=== PATIENT | male | born 1970 | race Caucasian/White ===

== ENCOUNTER → 2024-12-03 | Outpatient (CLI) | payer BC ==
[2024-12-04 01:11] LABS: Prostate Specific Antigen 5.43 ng/mL (0.000-3.500)
[2024-12-04 01:52] LABS: ALT 35 U/L (10-49); AST 27 U/L (14-35); Albumin 4.4 g/dL (3.8-4.9); Albumin/Globulin Ratio 1.76 Ratio (1.60-3.17); Alkaline Phosphatase 70 U/L (41-126); Anion Gap 12.30 mmol/L (4.00-12.00); BUN/Creat Ratio 19.25 Ratio (12.00-20.00); Blood Urea Nitrogen 15.4 mg/dL (9.0-27.0); Calcium 9.3 mg/dL (8.7-10.3); Carbon Dioxide 20.7 mmol/L (21.6-31.8); Chloride 106 mmol/L (96-109); Cholesterol 159.00 mg/dL (0.00-200.00); Globulin 2.5 g/dL (1.6-3.3); Glucose 78 mg/dL (70-110); HDL Cholesterol 44.80 mg/dL (40.00-60.00); LDL Cholesterol,Calculated 95.5 mg/dL (0.0-131.0); Potassium 4.0 mmol/L (3.5-5.5); Sodium 139 mmol/L (135-145); Total Protein 6.9 g/dL (6.2-8.2); Triglycerides 93.40 mg/dL (0.00-149.00); VLDL Calculation 18.68 mg/dL (5.00-40.00)
[2024-12-04 09:12] LABS: HCT 45.9 % (39.6-50.0); HGB 15.8 g/dL (13.0-17.0); MCH 30.6 pg (27.0-32.0); MCHC 34.4 g/dL (32.0-37.0); MCV 89.0 FL (80.0-97.0); NRBC Per 100 WBC 0.02 X 10*3/uL (0.00-0.01); Platelet Count 239 X 10*3/uL (140-440); RBC 5.16 X 10*6/uL (4.40-5.60); RDW 12.1 % (11.5-14.5); WBC 8.79 X 10*3/uL (4.50-10.00)
== END | disposition home or self-care (01) ==
LOC: LABMAIN 13:22
DX: Z12.5 Encounter for screening for malignant neoplasm of prostate (principal); I10 Essential (primary) hypertension; E78.5 Hyperlipidemia, unspecified; E66.3 Overweight; F41.1 Generalized anxiety disorder
CPT/HCPCS: 80053; 80061; 83036; 84153; 84443; 85027